=== PATIENT | male | born 1985 | race Caucasian/White ===

== ENCOUNTER 2017-08-26 00:56 | Emergency (ER) | payer BC, OTHER ==
[2017-08-26 01:30] VITALS: BP 100/60; PULSE 84; TEMP 98.4; BMI 24.4
--- NOTE | 2017-08-26 01:39 | PDOC ---
History of Present Illness - General Chief Complaint: Laceration Stated Complaint: FACE LACERATION Time Seen by Provider: 08/26/17 01:39 - History of Present Illness Initial Comments: 08/26/17 01:56 Mr. Pardo is a 31 yo male w/ no pmh who presents for evaluation of laceration to left forehead. He reports he was playing volleyball when he dove and hit his head on a bleacher. Denies any LOC, confusion, or altered mental status after. Currently feels fine and is at baseline per girlfriend. The patient denies chest pain, shortness of breath, headache and dizziness. Denies fever, chills, nausea, vomit, diarrhea and constipation. Denies dysuria, frequency, urgency and hematuria. Allergies: NKDA Past History - Past Medical History Allergies/Adverse Reactions: Allergies Allergy/AdvReac Type Severity Reaction Status Date / Time No Known Allergies Allergy Verified 08/26/17 01:30 Home Medications: Ambulatory Orders NK [No Known Home Medication] 08/26/17 - Suicide/Smoking/Psychosocial Hx Smoking History: Never smoked Have you smoked in the past 12 months: No Information on smoking cessation initiated: No Hx Alcohol Use: No Drug/Substance Use Hx: No Review of Systems - Review of Systems Comments:: 08/26/17 02:00 GENERAL/CONSTITUTIONAL: No fever or chills. No weakness. HEAD, EYES, EARS, NOSE AND THROAT: No change in vision. No ear pain or discharge. No sore throat. CARDIOVASCULAR: No chest pain or shortness of breath RESPIRATORY: No cough, wheezing, or hemoptysis. GASTROINTESTINAL: No nausea, vomiting, diarrhea or constipation. GENITOURINARY: No dysuria, frequency, or change in urination. MUSCULOSKELETAL: No joint or muscle swelling or pain. No neck or back pain. SKIN: No rash NEUROLOGIC: No headache, vertigo, loss of consciousness, or change in strength/ sensation. ENDOCRINE: No increased thirst. No abnormal weight change HEMATOLOGIC/LYMPHATIC: No anemia, easy bleeding, or history of blood clots. ALLERGIC/IMMUNOLOGIC: No hives or skin allergy. *Physical Exam - Vital Signs Last Vital Signs Temp Pulse Resp BP Pulse Ox 98.4 F 84 18 100/60 98 08/26/17 01:00 08/26/17 01:00 08/26/17 01:00 08/26/17 01:00 08/26/17 01:00 - Physical Exam Comments: 08/26/17 02:00 GENERAL: Awake, alert, and fully oriented, in no acute distress HEAD: +Small hematoma noted over left eyebrow with 3cm laceration. Normocephalic , atraumatic EYES: PERRLA, EOMI, sclera anicteric, conjunctiva clear ENT: Auricles normal inspection, hearing grossly normal, nares patent, oropharynx clear without exudates. Moist mucosa NECK: Normal ROM, supple, no lymphadenopathy, JVD, or masses LUNGS: No distress, speaks full sentences, clear to auscultation bilaterally HEART: Regular rate and rhythm, normal S1 and S2, no murmurs, rubs or gallops, peripheral pulses normal and equal bilaterally. ABDOMEN: Soft, nontender, normoactive bowel sounds. No guarding, no rebound. No masses EXTREMITIES: Normal inspection, Normal range of motion, no edema. No clubbing or cyanosis. NEUROLOGICAL: Cranial nerves II through XII grossly intact. Normal speech, normal gait, no focal sensorimotor deficits SKIN: Warm, Dry, normal turgor, no rashes or lesions noted. Procedures - Laceration/Wound Repair Left Medial Eye Wound Length: 2.6 to 5.0 cm Wound Explored: clean Wound's Depth, Shape: superficial Irrigated w/ Saline: No Betadine Prep: No Wound Repaired With: Dermabond (Cleaned with peroxide and closed with dermabond layer) Medical Decision Making - Medical Decision Making 08/26/17 02:02 Mr. Pardo is a 31 yo male w/ no pmh who presents for evaluation of small laceration and bruise after hitting his head on bleachers during volleyball this evening. Patient at baseline per girlfriend, denies any Neurological symptoms. Normal neuro exam. Laceration superficial; closed with dermabond. Discharging to home. *DC/Admit/Observation/Transfer Diagnosis at time of Disposition: Laceration - Discharge Dispostion Disposition: HOME Condition at time of disposition: Fair - Referrals Referrals: ON STAFF,NOT [Non Staff, Medical] - - Patient Instructions Printed Discharge Instructions: DI for Laceration Repair With Dermabond Additional Instructions: Please follow-up with primary care provider for further evaluation. Return to ER if any altered mental status, fever, chills, or other concerning symptoms. - Post Discharge Activity Forms/Work/School Notes: Back to Work
--- NOTE | 2017-08-26 01:47 | PDOC ---
Attending Attestation - HPI HPI: 08/26/17 01:52 The patient is a 31 year old male with no significant PMH who presents to the emergency department with a laceration to the left eyebrow today. The patient states he was playing volleyball when he accidentally injured his left eyebrow on the bleachers. Patient denies LOC. The patient denies injuries anywhere else. The patient denies chest pain, shortness of breath, headache and dizziness. Denies fever, chills, nausea, vomit, diarrhea and constipation. Denies dysuria, frequency, urgency and hematuria. Allergies: NKA Past surgical history: None reported. Social history: No reported alcohol, drug, or cigarette use. - Physicial Exam PE: 08/26/17 01:52 GENERAL: Awake, alert, and fully oriented, in no acute distress HEAD: No signs of trauma NECK: Normal ROM, supple, no lymphadenopathy, JVD, or masses LUNGS: Breath sounds equal, clear to auscultation bilaterally. No wheezes, and no crackles HEART: Regular rate and rhythm, normal S1 and S2, no murmurs, rubs or gallops ABDOMEN: Soft, nontender, normoactive bowel sounds. No guarding, no rebound. No masses EXTREMITIES: Normal range of motion, no edema. No clubbing or cyanosis. No cords, erythema, or tenderness NEUROLOGICAL: Cranial nerves II through XII grossly intact. Normal speech, normal gait SKIN: Warm, Dry, normal turgor (+) Abrasion through the distal third of the left eyebrow <Susan Parsons - Last Filed: 08/26/17 02:03> - Resident Resident Name: Delgado Nayak - ED Attending Attestation I have performed the following: I have examined & evaluated the patient, The case was reviewed & discussed with the resident, I agree w/resident's findings & plan, Exceptions are as noted - Medical Decision Making 08/26/17 19:39 Pt treated and released <Kane Tam - Last Filed: 08/26/17 19:39>
== END 2017-08-26 02:34 | disposition home or self-care (01) ==
LOC: SUPCPDRO 00:56 → JER 00:56
PROC: 0HQ1XZZ Repair Face Skin, External Approach (ICD-10-PCS; principal; 2017-08-26)
DX: S01.112A Laceration without foreign body of left eyelid and periocular area, initial encounter (principal); W01.198A Fall on same level from slipping, tripping and stumbling with subsequent striking against other object, initial encounter; Y93.68 Activity, volleyball (beach) (court); Y92.39 Other specified sports and athletic area as the place of occurrence of the external cause; Y99.8 Other external cause status
CPT/HCPCS: 99281-25

== ENCOUNTER 2018-02-01 20:26 | Emergency (ER) | payer OTHER, BC ==
[2018-02-01 20:33] VITALS: BP 125/77; PULSE 71; TEMP 97.7; BMI 24.4
[2018-02-01] MEDS ORDERED: DIPHTH,PERTUSS(ACELL),TET 0.5 ML DISP.SYRIN IM ONE ×2 (20:59→21:02)
--- NOTE | 2018-02-01 21:05 | PDOC ---
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 Patient was working when cerebra stray dog to the presents. Patient states the dog was in a kennel and turned around and nipped him on the left index finger. He reports that the dog was behaving normally at the time and believes the dog was just from being in a strange environment. Patient reports the dog's remains in [employer] custody at this time and can be monitored as needed. He is unsure of his last tetanus immunization. No recent travel or sick contacts. PAST MEDICAL HISTORY: Denies past medical history SURGICAL HISTORY: Denies ALLERGIES: No known drug allergies REVIEW OF SYSTEMS General/Constitutional: Denies fever or chills. Denies weakness, weight change. HEENT: Denies change in vision. Denies ear pain or discharge. Denies sore throat. Cardiovascular: Denies chest pain or shortness of breath. Respiratory: Denies cough, wheezing, or hemoptysis. Gastrointestinal: Denies nausea, vomiting, diarrhea or constipation. Denies rectal bleeding. Genitourinary: Denies dysuria, frequency, or change in urination. Musculoskeletal: Left index finger pain. Denies neck or back pain. Skin and breasts: Denies rash or easy bruising. Neurologic: Denies headache, vertigo, loss of consciousness, or loss of sensation. Psychiatric: Denies depression or anxiety. Endocrine: Denies increased thirst. Denies abnormal weight change. Hematologic/Lymphatic: Denies anemia, easy bleeding, or history of blood clots. Allergic/Immunologic: Denies hives or skin allergy. Denies latex allergy. PHYSICAL EXAM General Appearance: Well-appearing, appropriately dressed. No apparent distress , no intoxication. Musculoskeletal/Extremities: Normal inspection. FROM of all extremities, normal capillary refill. Pelvis Stable. No CVA tenderness. No tenderness to extremities, pedal edema, swelling, erythema or deformity. Integumentary: Appropriate color, dry, warm. No cyanosis, erythema, jaundice or rash. 2 subcentimeter ovoid areas of ecchymosis present to the left index finger immediately proximal to fingernail. Minor skin break present. Bleeding is controlled. 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 Fully oriented, alert. Appropriate mood/affect. Motor strength 5/5. No appreciable EOM palsy, facial droop or sensory deficit. Past History - Past Medical History Allergies/Adverse Reactions: Allergies Allergy/AdvReac Type Severity Reaction Status Date / Time No Known Allergies Allergy Verified 02/01/18 20:32 Home Medications: Ambulatory Orders Amoxicillin/Potassium Clav [Augmentin 875-125 Tablet] 1 each PO BID #20 tablet 02/01/18 COPD: No - Suicide/Smoking/Psychosocial Hx Smoking History: Never smoked Have you smoked in the past 12 months: No Hx Alcohol Use: No Drug/Substance Use Hx: No *Physical Exam - Vital Signs Last Vital Signs Temp Pulse Resp BP Pulse Ox 97.7 F 71 18 125/77 99 02/01/18 20:32 02/01/18 20:32 02/01/18 20:32 02/01/18 20:32 02/01/18 20:32 Moderate Sedation - Procedure Monitoring Vital Signs: Procedure Monitoring Vital Signs Temperature 97.7 F 02/01/18 20:32 Pulse Rate 71 02/01/18 20:32 Respiratory Rate 18 02/01/18 20:32 Blood Pressure 125/77 02/01/18 20:32 O2 Sat by Pulse Oximetry (%) 99 02/01/18 20:32 Medical Decision Making - Medical Decision Making 02/01/18 21:11 A/P: 32-year-old male with dog bite to left index finger 2 subcentimeter ovoid ecchymotic areas presents to the dorsum of the left index finger immediately proximal to fingernail Minor skin break is present Bleeding is controlled Capillary refill is less than 2 seconds Full sensation noted distal to injury Full flexion and extension of the finger noted Source animal was a stray dog who is currently in police custody and can be monitored as needed. I'll defer rabies treatment at this time as patient does not meet criteria. Boostrix IM Discharge *DC/Admit/Observation/Transfer Diagnosis at time of Disposition: Bite by animal - Discharge Dispostion Disposition: HOME Condition at time of disposition: Stable Decision to Admit order: No - Prescriptions Prescriptions: Amoxicillin/Potassium Clav [Augmentin 875-125 Tablet] 1 each PO BID #20 tablet - Referrals - Patient Instructions Additional Instructions: Today you were bitten by a stray dog. While the dog is in custody, it should be monitored for 10 days to observe for signs of rabies. If the dog develop signs of rabies you need to return to the emergency department immediately to initiate treatment and vaccination. If the dog is not this exhibit any signs of rabies or the residential service technician is able to provide proof of vaccination no further intervention is needed. You've been prescribed antibiotics need to take Augmentin 1 tablet twice a day until all medications have been completed- even if you feel better. Tetanus has been updated today. Return to emergency department for any redness tear fingertip, severe pain worse than initial injury, streaking up her finger arm or any other concerns. - Post Discharge Activity
== END 2018-02-01 21:20 | disposition home or self-care (01) ==
LOC: JERFT 20:26
PROC: 3E0234Z Introduction of Serum, Toxoid and Vaccine into Muscle, Percutaneous Approach (ICD-10-PCS; principal; 2018-02-01)
DX: S61.251A Open bite of left index finger without damage to nail, initial encounter (principal); W54.0XXA Bitten by dog, initial encounter; Y35.891A Legal intervention involving other specified means, law enforcement official injured, initial encounter; Y93.89 Activity, other specified; Y92.410 Unspecified street and highway as the place of occurrence of the external cause; Y99.0 Civilian activity done for income or pay
CPT/HCPCS: 90715; 99281-25

== ENCOUNTER 2018-06-23 20:48 | Emergency (ER) | payer OTHER, BC ==
--- NOTE | 2018-06-23 20:56 | PDOC ---
Rapid Medical Evaluation Chief Complaint: Pain Time Seen by Provider: 06/23/18 20:55 Medical Evaluation: Allergies Allergy/AdvReac Type Severity Reaction Status Date / Time No Known Allergies Allergy Verified 02/01/18 20:32 06/23/18 20:55 I did a brief in person evaluation on this patient. 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 I have ordered: right knee xray Pt will proceed to [facility] for further evaluation. Discharge Disposition - Diagnosis Knee pain Qualifiers: Chronicity: acute Laterality: right Qualified Code(s): M25.561 - Pain in right knee - Referrals - Patient Instructions - Post Discharge Activity
[2018-06-23 20:58] VITALS: BP 132/72; PULSE 78; TEMP 98.3; BMI 23.7
--- NOTE | 2018-06-23 21:30 | PDOC ---
History of Present Illness - General Chief Complaint: Pain Stated Complaint: [employer] - KNEE INJURY Time Seen by Provider: 06/23/18 20:55 - History of Present Illness Initial Comments: 06/23/18 21:27 32-year-old male without comorbidities presents for evaluation of right knee pain. 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 to prevent a door from closing the door was slammed on his right knee Past History - Past Medical History Allergies/Adverse Reactions: Allergies Allergy/AdvReac Type Severity Reaction Status Date / Time No Known Allergies Allergy Verified 06/23/18 20:58 Home Medications: Ambulatory Orders Ibuprofen [Motrin -] 600 mg PO TID #30 tablet 06/23/18 COPD: No - Suicide/Smoking/Psychosocial Hx Smoking History: Never smoked Have you smoked in the past 12 months: No Information on smoking cessation initiated: No Hx Alcohol Use: No Drug/Substance Use Hx: No Review of Systems - Review of Systems Musculoskeletal: Yes: Joint Pain *Physical Exam - Vital Signs Last Vital Signs Temp Pulse Resp BP Pulse Ox 98.3 F 78 17 132/72 100 06/23/18 20:55 06/23/18 20:55 06/23/18 20:55 06/23/18 20:55 06/23/18 20:55 - Physical Exam Comments: 06/23/18 21:27 Right knee skin color and temperature are normal. There are superficial abrasions from for a prior soccer injury. There is no swelling. Extensor mechanism is intact. This full nonpainful range of motion of the hip and ankle. Thighs and calves are soft and nontender. There is tenderness about the medial lateral joint line of the right knee. There are no gross sensorimotor deficits or evidence of instability. He is neurovascularly intact. Medical Decision Making - Medical Decision Making 06/23/18 21:28 Right knee contusion. Weight-bear as tolerated with crutches Motrin as directed and follow-up with orthopedic *DC/Admit/Observation/Transfer Diagnosis at time of Disposition: Contusion of right knee Knee pain Qualifiers: Chronicity: acute Laterality: right Qualified Code(s): M25.561 - Pain in right knee - Discharge Dispostion Disposition: HOME Condition at time of disposition: Stable Decision to Admit order: No - Referrals Referrals: Alessandro Yadav DO [Staff Physician] - - Patient Instructions Printed Discharge Instructions: Contusion Additional Instructions: He may weight-bear as tolerated with use of crutches. Return to the emergency room for worsening symptoms. Please use the Motrin as directed one tablet 3 times a day with food discontinue the medication if it bothers her stomach. Follow-up with orthopedic surgery in 1-2 days for further evaluation and treatment options. - Post Discharge Activity
== END 2018-06-23 21:33 | disposition home or self-care (01) ==
LOC: JERFT 20:48
DX: S80.01XA Contusion of right knee, initial encounter (principal); W22.8XXA Striking against or struck by other objects, initial encounter; Y35.891A Legal intervention involving other specified means, law enforcement official injured, initial encounter; Y93.89 Activity, other specified; Y92.89 Other specified places as the place of occurrence of the external cause; Y99.0 Civilian activity done for income or pay
CPT/HCPCS: 73560-TC-RT-FY; 99281-25

== ENCOUNTER 2019-12-04 02:41 | Emergency (ER) | payer OTHER ==
[2019-12-04 02:51] VITALS: BP 117/79; PULSE 95; TEMP 99; BMI 20.6
--- OUTSIDE RECORDS SUMMARY | 2019-12-04 03:03 | XMS ---
:1985 Author Organization [facility] Support Name Relationship Address Phone [facility] [place] [address] ANN MERCADO MOTHER [address] [place] [address] Re-disclosure Warning The records that you are about to access may contain information from federally- assisted alcohol or drug abuse programs. If such information is present, then the following federally mandated warning applies: This information has been disclosed to you from records protected by federal confidentiality rules (42 CFR part 2). The federal rules prohibit you from making any further disclosure of this information unless further disclosure is expressly permitted by the written consent of the person to whom it pertains or as otherwise permitted by 42 CFR part 2. A general authorization for the release of medical or other information is NOT sufficient for this purpose. The Federal rules restrict any use of the information to criminally investigate or prosecute any alcohol or drug abuse patient.The records that you are about to access may contain highly sensitive health information, the redisclosure of which is protected by Article 27-F of the [facility] Public Health law. If you continue you may haveaccess to information: Regarding HIV / AIDS; Provided by facilities licensed or operated by the [facility] Office of Mental Health; or Provided by the [facility] Office for People With Developmental Disabilities. If such information is present, then the following [facility] mandated warning applies: This information has been disclosed to you from confidential records which are protected by state law. State law prohibits you from making any further disclosure of this information without the specific written consent of the person to whom it pertains, or as otherwise permitted by law. Any unauthorized further disclosure in violation of state law may result in a fine or usp sentence or both. A general authorization for the release of medical or other information is NOT sufficient authorization for further disclosure. Insurance Providers Payer name Policy type Policy ID Covered Covered democrat's Policy P polo / Coverage democrat ID relationship to [place] ormation [place] [id number] [employer] RISK [id number] SP [id number] MANAGEMENT BC PPO [id number] SP [id number] [employer] RISK [id number] MANAGEMENT Results ID Date Data Source [id number] 05/14/2019 12:00:00 AM [facility] Name Value Range Interpretation Code Description Data Toshia rce(s) Supporting Document(s ) 2019-nCoV [facility] RNA XXX FREDRICK+probe- Imp This lab was ordered by [facility] a nd reported by [employer] Procedure
--- NOTE | 2019-12-04 03:16 | PDOC ---
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 Patient is complaining of pain of his left hand and left knee. Patient's tetanus is up-to-date. Allergies: as per nursing notes Past Medical History: none Social history: Lives with family. No smoking. No alcohol. No illicit drugs. Surgical history: None General: No fevers or chills, no weakness, no weight loss HEENT: No change in vision. No sore throat,. No ear pain CardioVascular: no chest discomfort. No shortness of breath Respiratory:No cough, or wheezing. Gastrointestinal: no nausea, vomiting, diarrhea or constipation, No rectal bleeding Genitourinary: No dysuria, hematuria, or frequency Musculoskeletal: Left hand and left knee abrasion and pain Neurologic: No headache, vertigo, dizziness or loss of consciousness Psychiatric: nor depression Skin: No rashes or easy bruising Endocrine: no increased thirst or abnormal weight change Allergic: no skin or latex allergy All other systems reviewed and normal GENERAL: The patient is awake, alert, and fully oriented, in no acute distress. HEENT:Head is normal with no signs of trauma. Eyes: Pupils equal, round and reactive to light, Ears, and Throat are normal. Neck is supple. No Lymphadenopathy. EXTREMITIES: Left hand there is a approximately 1 cm x 1 cm avulsion of the skin from the palm of the hand with some tenderness on palpation of the area. Neurovascular distally is intact. Left knee there is some superficial abrasions with a contusion to the anterior left knee. There is no bony tenderness on palpation. NEUROLOGICAL: Normal speech, normal gait. PSYCH: Normal mood, normal affect. SKIN: Warm, Dry, normal turgor, no rashes or lesions noted. 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 X-rays were done of the left hand and there was no acute pathology fracture or dislocation. The wounds were cleaned and Band-Aids and bacitracin were applied Past History - Medical History Allergies/Adverse Reactions: Allergies Allergy/AdvReac Type Severity Reaction Status Date / Time No Known Allergies Allergy Verified 06/23/18 20:58 Home Medications: Ambulatory Orders NK [No Known Home Medication] 12/04/19 COPD: No - Immunization History Immunization Up to Date: Yes - Psycho-Social/Smoking History Smoking History: Never smoked Have you smoked in the past 12 months: No *Physical Exam - Vital Signs Last Vital Signs Temp Pulse Resp BP Pulse Ox 99 F 95 H 18 117/79 97 12/04/19 02:46 12/04/19 02:46 12/04/19 02:46 12/04/19 02:46 12/04/19 02:46 ED Treatment Course - RADIOLOGY Radiology Studies Ordered: Category Date Time Status WRIST W/HAND-LEFT* [RAD] Stat Radiology 12/04/19 02:56 Ordered Discharge - Discharge Information Problems reviewed: Yes Clinical Impression/Diagnosis: Avulsion of skin of left hand Qualifiers: Encounter type: initial encounter Qualified Code(s): S61.402A - Unspecified open wound of left hand, initial encounter Contusion of left hand Qualifiers: Encounter type: initial encounter Qualified Code(s): S60.222A - Contusion of left hand, initial encounter Contusion of left knee Qualifiers: Encounter type: initial encounter Qualified Code(s): S80.02XA - Contusion of left knee, initial encounter Abrasion of left knee Qualifiers: Encounter type: initial encounter Qualified Code(s): S80.212A - Abrasion, left knee, initial encounter Condition: Stable Disposition: HOME - Admission No - Follow up/Referral - Patient Discharge Instructions Additional Instructions: Clean the areas with little peroxide and reapply bacitracin and a Band-Aid as needed until they are scabbed over. Tylenol or Motrin as needed for pain Return to the emergency department immediately with ANY new, persistent or worsening symptoms. Continue any medications as previously prescribed by your physician. You should follow up with your primary doctor as soon as possible regarding today's emergency department visit. . Please make sure your doctor reviews the results of your emergency evaluation. Thank you for coming to the Emergency Department today for your care. It was a pleasure to see you today. Please note that your evaluation is INCOMPLETE until you follow-up with your doctor. - Post Discharge Activity Work/Back to School Note: Back to Work
== END 2019-12-04 03:31 | disposition home or self-care (01) ==
LOC: FER 02:41
DX: S61.402A Unspecified open wound of left hand, initial encounter (principal); S60.222A Contusion of left hand, initial encounter; S80.212A Abrasion, left knee, initial encounter; S80.02XA Contusion of left knee, initial encounter
CPT/HCPCS: 73110-TC-LT-FY; 73130-TC-LT-FY; 99283-25

== ENCOUNTER 2020-03-26 09:05 | Emergency (ER) | payer OTHER ==
[2020-03-26] MEDS ORDERED: IBUPROFEN 600 MG TABLET (FP) PO ONE ×2 (09:14→09:42)
[2020-03-26 09:23] VITALS: BP 122/81; PULSE 55; TEMP 99; BMI 23.7
== END 2020-03-26 10:35 | disposition home or self-care (01) ==
LOC: FER 09:05
DX: S80.02XA Contusion of left knee, initial encounter (principal); M25.562 Pain in left knee
CPT/HCPCS: 72170-TC-FY; 73562-TC-LT-FY; 99284-25

== ENCOUNTER 2022-09-16 22:56 | Emergency (ER) | payer BC, OTHER ==
[2022-09-16] MEDS ORDERED: ACETAMINOPHEN 325 MG TABLET (FP) PO ONE (22:58)
[2022-09-16] MEDS ORDERED: KETOROLAC TROMETHAMINE 30 MG/1 ML VIAL IM ONE (22:58)
[2022-09-16] MEDS ORDERED: KETOROLAC TROMETHAMINE 30 MG/1 ML VIAL ONE (23:10)
[2022-09-16] MEDS ORDERED: ACETAMINOPHEN 325 MG TABLET (FP) ONE (23:10)
[2022-09-16] MEDS ORDERED: ONDANSETRON 4 MG TABLET PO ONE (23:18)
[2022-09-16] MEDS ORDERED: ONDANSETRON *ODT* 4 MG TABLET ONE (23:25)
== END 2022-09-16 23:29 | disposition home or self-care (01) ==
LOC: FER 22:56
PROC: 3E0233Z Introduction of Anti-inflammatory into Muscle, Percutaneous Approach (ICD-10-PCS; principal; 2022-09-16)
DX: R50.9 Fever, unspecified (principal); M79.10 Myalgia, unspecified site; R11.2 Nausea with vomiting, unspecified; B34.9 Viral infection, unspecified; Z20.822 Contact with and (suspected) exposure to COVID-19
CPT/HCPCS: 0241U-QW; 99284-25

== ENCOUNTER 2023-10-04 05:04 | Emergency (ER) | payer OTHER, BC ==
[2023-10-04 05:12] VITALS: BP 123/83; PULSE 70; RESP 16; TEMP 98.4; BMI 23.8
== END 2023-10-04 05:37 | disposition home or self-care (01) ==
LOC: FER 05:04
DX: Z77.21 Contact with and (suspected) exposure to potentially hazardous body fluids (principal)
CPT/HCPCS: 99282-25